=== PATIENT | female | born 1955 | race African-American/Black ===

== ENCOUNTER 2016-06-10 14:12 | Emergency (ER) | payer OTHER ==
[2016-06-10 14:44] VITALS: BP 161/71; PULSE 85; TEMP 98.3; BMI 42.5
--- NOTE | 2016-06-10 15:28 | PDOC ---
History of Present Illness - General Chief Complaint: Pain, Acute Stated Complaint: KNEE PAIN Time Seen by Provider: 06/10/16 14:54 History Source: Patient Exam Limitations: No Limitations - History of Present Illness Initial Comments: 06/10/16 15:26 61 yr female c/o left lower leg and knee pain for 3 days denies trauma. Pt states she was walking on flat surface and her left knee "buckled" and she felt pain to her calf. no numbness or tingling, no foot pain or back pain . Severity: Yes: mild Past History - Past Medical History Allergies/Adverse Reactions: Allergies Allergy/AdvReac Type Severity Reaction Status Date / Time hydrocodone [Hydrocodone] Allergy Verified 06/10/16 14:39 Home Medications: Ambulatory Orders Metoprolol Succinate [Toprol XL -] 25 mg PO DAILY 10/30/13 Aspirin [ASA -] 81 mg PO DAILY 06/10/16 Ezetimibe [Zetia -] 10 mg PO DAILY 06/10/16 Gabapentin 100 mg PO ASDIR 06/10/16 Losartan/Hydrochlorothiazide [Losartan-Hctz 100-12.5 mg Tab] 100 mg PO ASDIR 03/28 Naproxen [Naprosyn -] 500 mg PO BID PRN #14 tablet 06/10/16 Pantoprazole Sodium 40 mg PO ASDIR 06/10/16 Diabetes: Yes HTN: Yes Hypercholesterolemia: Yes Suicide Attempt (Hx): No - Family Disease History Family Disease History: Heart Disease: Father - Immunization History Immunization Up to Date: Yes - Psycho/Social/Smoking Cessation Hx Anxiety: No Suicidal Ideation: No Smoking Status: No Smoking History: Never smoked Have you smoked in the past 12 months: No Number of Cigarettes Smoked Daily: 0 Information on smoking cessation initiated: No Hx Alcohol Use: No Drug/Substance Use Hx: No Substance Use Type: None Hx Substance Use Treatment: No Review of Systems - Review of Systems Able to Perform ROS?: Yes Is the patient limited Lithuanian proficient: No Constitutional: No: Symptoms Reported HEENTM: No: Symptoms Reported Respiratory: No: Symptoms reported Cardiac (ROS): No: Symptoms Reported ABD/GI: No: Symptoms Reported : No: Symptoms Reported Musculoskeletal: Yes: See HPI *Physical Exam - Vital Signs Last Vital Signs Temp Pulse Resp BP Pulse Ox 98.3 F 85 16 161/71 95 06/10/16 14:40 06/10/16 14:40 06/10/16 14:40 06/10/16 14:40 06/10/16 14:40 - Physical Exam General Appearance: Yes: Nourished, Appropriately Dressed HEENT: positive: EOMI, BERTA Neck: positive: Supple Respiratory/Chest: positive: Lungs Clear, Normal Breath Sounds Cardiovascular: positive: Regular Rhythm, Regular Rate Musculoskeletal: positive: Normal Inspection Extremity: positive: Normal Capillary Refill, Normal Inspection, Other ( decreased ROM left knee due to pain behind the knee and to the left lateral calf , no redness no warmth, no swelling ) Integumentary: positive: Normal Color, Dry, Warm Neurologic: positive: Fully Oriented, Alert, Normal Mood/Affect, Normal Response , Motor Strength 5/5 Deep Tendon Reflexes: Ankle (L): 2+, Ankle (R): 2+ ED Treatment Course - RADIOLOGY Radiology Studies Ordered: Category Date Time Status KNEE 3 POS-LEFT [RAD] Stat Radiology 06/10/16 14:55 Ordered DUPLEX VASCUL US-1 LEG [US] Stat Ultrasound 06/10/16 15:24 Ordered Medical Decision Making - Medical Decision Making 06/10/16 15:28 cc: left lower leg pain /knee pain will r/o DVT will r/o bakers cyst 06/10/16 16:18 06/10/16 16:19 positive for bakers cyst will dc home with nsaids warm compresses follow up with ortho 06/10/16 17:50 *DC/Admit/Observation/Transfer Diagnosis at time of Disposition: Diaz's cyst of knee Qualifiers: Laterality: left Qualified Code(s): M71.22 - Synovial cyst of popliteal space [ Diaz], left knee - Discharge Dispostion Disposition: HOME Condition at time of disposition: Good - Prescriptions Prescriptions: Naproxen [Naprosyn -] 500 mg PO BID PRN #14 tablet PRN Reason: Pain - Referrals Referrals: Isra Connor MD [Primary Care Provider] - Samuel Callaway MD [Staff Physician] - - Patient Instructions Additional Instructions: please follow up with the orthopedist Dr. Callaway or for follow up in 3- 5 days or with your primary care doctor take naprosyn for pain as prescribed apply warm heating pad to the area of pain every 2hrs for 15 minutes for the next 2 days this can help with pain and with swelling behind the knee
== END 2016-06-10 18:04 | disposition home or self-care (01) ==
LOC: JERFT 14:12
DX: M71.22 Synovial cyst of popliteal space [Baker], left knee (principal); I10 Essential (primary) hypertension; E11.9 Type 2 diabetes mellitus without complications; Z79.84 Long term (current) use of oral hypoglycemic drugs; E78.00 Pure hypercholesterolemia, unspecified
CPT/HCPCS: 73562-TC-LT; 93971-TC; 99281-25

== ENCOUNTER 2018-08-12 18:42 | Emergency (ER) | payer OTHER ==
[2018-08-12] MEDS ORDERED: ONDANSETRON 4 MG/2 ML VIAL IVPUSH ONE ×2 (18:48→21:02)
[2018-08-12] MEDS ORDERED: SODIUM CHLORIDE 1,000 ML IV STA (18:48)
--- NOTE | 2018-08-12 18:48 | PDOC ---
Rapid Medical Evaluation Time Seen by Provider: 08/12/18 18:43 Medical Evaluation: Allergies Allergy/AdvReac Type Severity Reaction Status Date / Time hydrocodone [Hydrocodone] Allergy Verified 06/10/16 14:39 08/12/18 18:43 The patient is a 63 y/o F who presents with vomiting and abdominal pain since 2 pm. Hx of gastric sleeve surgery in 2017. Denies fevers, dysuria Exam: Epigastric/RUQ discomfort, vomiting in waiting room Orders: labs, urine, EKG, IV, meds Pt to proceed to the ER for further evaluation Discharge Disposition - Diagnosis Abdominal pain - Referrals - Patient Instructions - Post Discharge Activity
[2018-08-12 18:49] VITALS: BMI 27.4
--- NOTE | 2018-08-12 19:25 | PDOC ---
History of Present Illness - General Chief Complaint: Pain Stated Complaint: ABD PAIN Time Seen by Provider: 08/12/18 18:43 - History of Present Illness Initial Comments: 08/12/18 19:24 Ms. Asif is a 63 yo female w/ pmh of GERD, HTN, and Gastric sleeve in 2017 who presents for evaluation of N/V and abdominal pain since noon today. Patient reports she had only coffee and yogurt this morning and has had several episodes of green vomiting since. Was previously well until this occured and localizes her pain to RUQ. Last BM was yesterday and normal. Denies other complaints at this time. The patient denies chest pain, shortness of breath, headache and dizziness. Denies fever, chills, diarrhea and constipation. Denies dysuria, frequency, urgency and hematuria. Past History - Past Medical History Allergies/Adverse Reactions: Allergies Allergy/AdvReac Type Severity Reaction Status Date / Time hydrocodone [Hydrocodone] Allergy Rash Verified 08/12/18 18:44 Home Medications: Ambulatory Orders Metoprolol Succinate [Toprol XL -] 25 mg PO DAILY 10/30/13 Aspirin [ASA -] 81 mg PO DAILY 06/10/16 Ezetimibe [Zetia -] 10 mg PO DAILY 06/10/16 Gabapentin 100 mg PO ASDIR 06/10/16 Losartan/Hydrochlorothiazide [Losartan-Hctz 100-12.5 mg Tab] 100 mg PO ASDIR 03/28 Naproxen [Naprosyn -] 500 mg PO BID PRN #14 tablet 06/10/16 Pantoprazole Sodium 40 mg PO ASDIR 06/10/16 Diabetes: Yes HTN: Yes Hypercholesterolemia: Yes - Family Disease History Family Disease History: Heart Disease: Father - Immunization History Immunization Up to Date: Yes - Suicide/Smoking/Psychosocial Hx Smoking Status: No Smoking History: Never smoked Have you smoked in the past 12 months: No Number of Cigarettes Smoked Daily: 0 Hx Alcohol Use: No Drug/Substance Use Hx: No Substance Use Type: None Hx Substance Use Treatment: No Review of Systems - Review of Systems Comments:: 08/12/18 21:59 GENERAL/CONSTITUTIONAL: No fever or chills. No weakness. HEAD, EYES, EARS, NOSE AND THROAT: No change in vision. No ear pain or discharge. No sore throat. CARDIOVASCULAR: No chest pain or shortness of breath RESPIRATORY: No cough, wheezing, or hemoptysis. GASTROINTESTINAL: +N/V as described w/ abdominal pain as described. No diarrhea or constipation. GENITOURINARY: No dysuria, frequency, or change in urination. MUSCULOSKELETAL: No joint or muscle swelling or pain. No neck or back pain. SKIN: No rash NEUROLOGIC: No headache, vertigo, loss of consciousness, or change in strength/ sensation. ENDOCRINE: No increased thirst. No abnormal weight change HEMATOLOGIC/LYMPHATIC: No anemia, easy bleeding, or history of blood clots. ALLERGIC/IMMUNOLOGIC: No hives or skin allergy. *Physical Exam - Vital Signs Last Vital Signs Temp Pulse Resp BP Pulse Ox 98.9 F 115 H 18 110/81 100 08/12/18 18:45 08/12/18 18:45 08/12/18 18:45 08/12/18 18:45 08/12/18 18:45 - Physical Exam Comments: 08/12/18 22:00 GENERAL: Awake, alert, and fully oriented, in no acute distress HEAD: No signs of trauma, normocephalic, atraumatic EYES: PERRLA, EOMI, sclera anicteric, conjunctiva clear ENT: Auricles normal inspection, hearing grossly normal, nares patent, oropharynx clear without exudates. Moist mucosa NECK: Normal ROM, supple, no lymphadenopathy, JVD, or masses LUNGS: No distress, speaks full sentences, clear to auscultation bilaterally HEART: Regular rate and rhythm, normal S1 and S2, no murmurs, rubs or gallops, peripheral pulses normal and equal bilaterally. ABDOMEN: +Diffuse abdominal TTP; RUQ increased. Otherwise soft, normoactive bowel sounds. No guarding, no rebound. No masses EXTREMITIES: Normal inspection, Normal range of motion, no edema. No clubbing or cyanosis. NEUROLOGICAL: Cranial nerves II through XII grossly intact. Normal speech, normal gait, no focal sensorimotor deficits SKIN: Warm, Dry, normal turgor, no rashes or lesions noted. ED Treatment Course - LABORATORY CBC & Chemistry Diagram: 08/12/18 19:45 08/12/18 19:45 Medical Decision Making - Medical Decision Making 08/13/18 00:28 Ms. Asif is a 63 yo female w/ pmh as described who presents for evaluation of N /V/abdominal pain symptoms concerning for viral illness vs. cholecystitis vs. obstruction. Patient evaluated with labs as below as well as CT abd/pelvis w/ oral contrast. Patient noted to have SBO on CT. Discussed patient with on-call surgery who requests patient be transferred for evaluation at previous surgery site given gastric sleeve placement. Call placed to [facility] for transfer. 08/13/18 00:59 NG placed for continued N/V. 08/13/18 01:26 Unable to get in touch w/ surgeon. Patient accepted for transfer to [facility] by Dr. Robertson (ER Doctor). Patient consented for transfer. Patient NG tube also became displaced. Patient's symptoms improved at this time w/ approx. 300cc bilious material in sump bag. Decision made to withhold placement of tube pending return of symptoms. Patient pending transfer. Laboratory Results - last 24 hr 08/12/18 08/12/18 08/12/18 19:45 19:45 19:45 WBC 7.3 RBC 4.82 Hgb 14.4 Hct 43.4 D MCV 90.2 MCH 30.0 MCHC 33.2 RDW 13.6 Plt Count 144 D MPV 9.0 Absolute Neuts (auto) 6.2 Neutrophils % 85.0 H D Lymphocytes % 11.9 D Monocytes % 2.5 L Eosinophils % 0.0 D Basophils % 0.6 Nucleated RBC % 0 PT with INR 12.30 INR 1.04 Sodium 140 Potassium 4.1 Chloride 101 Carbon Dioxide 31 Anion Gap 7 L BUN 20.2 H Creatinine 1.0 Est GFR (CKD-EPI)AfAm 70.42 Est GFR (CKD-EPI)NonAf 60.76 Random Glucose 184 H Calcium 6.8 L* Phosphorus 3.8 Magnesium 2.1 Total Bilirubin 0.7 AST 25 ALT 24 Alkaline Phosphatase 96 Total Protein 9.2 H Albumin 4.6 Lipase 135 Urine Color Urine Appearance Urine pH Ur Specific [place] Urine Protein Urine Glucose (UA) Urine Ketones Urine Blood Urine Nitrite Urine Bilirubin Urine Urobilinogen Ur Leukocyte Esterase Urine WBC (Auto) Urine RBC (Auto) Urine Casts (Auto) U Pathogenic Cast Auto U Epithel Cells (Auto) Urine Bacteria (Auto) 08/12/18 19:45 WBC RBC Hgb Hct MCV MCH MCHC RDW Plt Count MPV Absolute Neuts (auto) Neutrophils % Lymphocytes % Monocytes % Eosinophils % Basophils % Nucleated RBC % PT with INR INR Sodium Potassium Chloride Carbon Dioxide Anion Gap BUN Creatinine Est GFR (CKD-EPI)AfAm Est GFR (CKD-EPI)NonAf Random Glucose Calcium Phosphorus Magnesium Total Bilirubin AST ALT Alkaline Phosphatase Total Protein Albumin Lipase Urine Color Dk yellow Urine Appearance Cloudy Urine pH 5.0 Ur Specific [place] 1.028 Urine Protein 1+ H Urine Glucose (UA) Negative Urine Ketones Trace H Urine Blood Negative Urine Nitrite Negative Urine Bilirubin Negative Urine Urobilinogen 1.0 Ur Leukocyte Esterase 1+ H Urine WBC (Auto) 3 Urine RBC (Auto) 5 Urine Casts (Auto) 18 U Pathogenic Cast Auto None U Epithel Cells (Auto) 5.0 Urine Bacteria (Auto) 8.5 *DC/Admit/Observation/Transfer Diagnosis at time of Disposition: Small bowel obstruction Abdominal pain Qualifiers: Abdominal location: unspecified location Qualified Code(s): R10.9 - Unspecified abdominal pain - Discharge Dispostion Disposition: TRANSFER ACUTE CARE/OTHER HOSP - Referrals - Patient Instructions - Post Discharge Activity
[2018-08-12] MEDS ORDERED: ACETAMINOPHEN 1000 MG/100 ML VIAL (NON FORMULARY) IVPB ONE (19:49)
[2018-08-12] MEDS ORDERED: ONDANSETRON 4 MG/2 ML VIAL ONE ×2 (20:01→21:11)
[2018-08-12] MEDS ORDERED: ACETAMINOPHEN INJECTION 100 ML IVPB ONE (20:01)
[2018-08-12 20:03] LABS: BASO % 0.6 % (0-2.0); HEMATOCRIT 43.4 % (32.4-45.2); HEMOGLOBIN 14.4 GM/dL (10.7-15.3); LYMPH % 11.9 % (8-40); MCHC 33.2 g/dl (32.0-36.0); MEAN CELL VOLUME 90.2 fl (80-96); MONO % 2.5 % (3.8-10.2); PLATELET COUNT 144 K/MM3 (134-434); RBC 4.82 M/mm3 (3.60-5.2); RDW 13.6 % (11.6-15.6); WHITE BLOOD COUNT 7.3 K/mm3 (4.0-10.0)
[2018-08-12 20:11] LABS: HYALINE CASTS 18 /lpf (0-8); URINE APPEARANCE CLOUDY; URINE BACTERIA 8.5 /hpf (NEGATIVE); URINE BILIRUBIN NEGATIVE (NEGATIVE); URINE COLOR DK YELLOW; URINE GLUCOSE (UA) NEGATIVE (NEGATIVE); URINE KETONE TRACE (NEGATIVE); URINE LEUK ESTERASE 1+ (NEGATIVE); URINE NITRITE NEGATIVE (NEGATIVE); URINE PROTEIN 1+ (NEGATIVE); URINE RBC 5 /hpf (0-4); URINE WBC 3 /hpf (0-5)
[2018-08-12 20:14] LABS: INR 1.04 (0.83-1.09); PROTHROMBIN TIME (PATIENT) 12.3 SEC (9.7-13.0)
--- NOTE | 2018-08-12 20:15 | PDOC ---
Documentation entered by Ileana Boothe SCRIBE, acting as scribe for Conrado Prieto MD. Conrado Prieto MD: This documentation has been prepared by the Tl sewell Nirvannie, SCRIBE, under my direction and personally reviewed by me in its entirety. I confirm that the documentation accurately reflects all work, treatment, procedures, and medical decision making performed by me. Attending Attestation - Resident Resident Name: Robbie Pedroza - ED Attending Attestation I have performed the following: I have examined & evaluated the patient, The case was reviewed & discussed with the resident, I agree w/resident's findings & plan - HPI HPI: 08/12/18 19:51 The patient is a 63year old female, with a significant past medical history of GERD, HTN, gastric sleeve, who presents to the emergency department with, 8 hours of vomiting with diffuse abdominal pain worsened in the RUQ and radiating to the back. She denies recent fevers or chills. She denies recent dysuria, frequency, urgency or hematuria. She denies recent chest pain or shortness of breath. Allergies: Hydrocodone Past surgical history: gastric sleeve 2017, - Physicial Exam PE: 08/12/18 23:19 Agree with exam as documented by resident - Medical Decision Making 08/12/18 23:19 One day of progressive abdominal pain a/w nausea and bilious vomiting. prior hx of gastric sleeve surgery in 2017 Physical exam is concerning for acute abdomen f/u labs f/u imaging CT shows high grade distal SBO Surgery consulted Spoke with Dr. Bowens at 2315 08/12/18, who defers care to Bariatric surgery team at [facility] who has taken care of her in the past and knows her case. Will transfer for definitive care, patient stable NG tube placed
[2018-08-12 20:25] LABS: ALBUMIN 4.6 g/dl (3.4-5.0); BILIRUBIN,TOTAL 0.7 mg/dL (0.2-1); BLOOD UREA NITROGEN 20.2 mg/dL (7-18); POTASSIUM 4.1 mmol/L (3.5-5.1); TOT PROT 9.2 g/dl (6.4-8.2)
[2018-08-12 20:30] LABS: CALCIUM 6.8 mg/dL (8.5-10.1)
[2018-08-12] MEDS ORDERED: CALCIUM GLUCONATE 10% - 1,000 MG/10 ML VIAL IVPB ONE (21:00)
[2018-08-12] MEDS ORDERED: CALCIUM GLUCONATE 10% - 1,000 MG/10 ML VIAL ONE (21:11)
[2018-08-12 22:27] LABS: MAGNESIUM 2.1 mg/dL (1.8-2.4); PHOSPHOROUS 3.8 mg/dL (2.5-4.9)
[2018-08-13] MEDS ORDERED: LIDOCAINE VISCOUS 2% ORAL/TOP 20 ML UNIT-DOSE CUP MM ONE (00:39)
[2018-08-13] MEDS ORDERED: TETRACAINE/BENZOCAINE/BUTAMBEN 20 GM SPR TP ONE (00:39)
[2018-08-13] MEDS ORDERED: LIDOCAINE VISCOUS 2% ORAL/TOP 20 ML UNIT-DOSE CUP ONE (00:44)
[2018-08-13 03:04] VITALS: BP 114/78; PULSE 97
[2018-08-13 03:15] VITALS: TEMP 98.6
--- NOTE | 2018-08-13 11:22 | EKG ---
Test Reason : Blood Pressure : / mmHG Vent. Rate : 094 BPM Atrial Rate : 094 BPM P-R Int : 150 ms QRS Dur : 082 ms QT Int : 362 ms P-R-T Axes : 064 -13 044 degrees QTc Int : 452 ms NORMAL SINUS RHYTHM POSSIBLE LEFT ATRIAL ENLARGEMENT WHEN COMPARED WITH ECG OF 18-AUG-2011 23:39, NO SIGNIFICANT CHANGE WAS FOUND Confirmed by SIVAN NINO MD ([id number]) on 08/13/2018 11:22:18 AM Referred By: Confirmed By:SIVAN NINO MD
== END 2018-08-13 03:17 | disposition short-term general hospital (02) ==
LOC: JER 18:42
PROC: 3E033NZ Introduction of Analgesics, Hypnotics, Sedatives into Peripheral Vein, Percutaneous Approach (ICD-10-PCS; principal; 2018-08-12)
PROC: 3E033GC Introduction of Other Therapeutic Substance into Peripheral Vein, Percutaneous Approach (ICD-10-PCS; 2018-08-12)
PROC: 3E0337Z Introduction of Electrolytic and Water Balance Substance into Peripheral Vein, Percutaneous Approach (ICD-10-PCS; 2018-08-12)
DX: K56.609 Unspecified intestinal obstruction, unspecified as to partial versus complete obstruction (principal); Z98.84 Bariatric surgery status; I10 Essential (primary) hypertension; K21.9 Gastro-esophageal reflux disease without esophagitis; E11.9 Type 2 diabetes mellitus without complications
CPT/HCPCS: 36415; 74177-TC; 80053; 81003; 83690; 83735; 84100; 85025; 85610; 87077; 87086; 93005; 93010; 99284-25; J0131; J7030; Q9967

== ENCOUNTER 2018-08-25 05:01 | Emergency (ER) | payer OTHER ==
[2018-08-25 06:58] VITALS: BMI 28.8
[2018-08-25] MEDS ORDERED: LACTATED RINGERS SOLUTION 1,000 ML/1,000 ML INFUS.BAG IV STA (07:24)
[2018-08-25] MEDS ORDERED: FAMOTIDINE 20 MG/50 ML IVPB 20 MG/50 ML MG IVPB ONE ×2 (07:25→08:05)
[2018-08-25] MEDS ORDERED: ACETAMINOPHEN 1000 MG/100 ML VIAL (NON FORMULARY) IVPB ONE (07:25)
[2018-08-25] MEDS ORDERED: ACETAMINOPHEN INJECTION 100 ML IVPB ONE (08:04)
[2018-08-25 08:34] LABS: BASO % 0.3 % (0-2.0); EOS % 0.1 % (0-4.5); HEMATOCRIT 34.8 % (32.4-45.2); LYMPH % 20.5 % (8-40); MCH 30.7 pg (25.7-33.7); MCHC 34.5 g/dl (32.0-36.0); MEAN PLT VOLUME 8.4 fl (7.5-11.1); MONO % 5.5 % (3.8-10.2); NEUT % 73.6 % (42.8-82.8); PLATELET COUNT 185 K/MM3 (134-434); RBC 3.91 M/mm3 (3.60-5.2); RDW 13.9 % (11.6-15.6); WHITE BLOOD COUNT 5.7 K/mm3 (4.0-10.0)
[2018-08-25 08:41] LABS: INR 1.05 (0.83-1.09); PROTHROMBIN TIME (PATIENT) 12.4 SEC (9.7-13.0)
[2018-08-25 09:05] LABS: ALBUMIN 3.6 g/dl (3.4-5.0); BILIRUBIN,TOTAL 0.5 mg/dL (0.2-1); BLOOD UREA NITROGEN 14.5 mg/dL (7-18); CALCIUM 9.6 mg/dL (8.5-10.1); CREATININE 0.8 mg/dL (0.55-1.3); POTASSIUM 4.5 mmol/L (3.5-5.1); TOT PROT 7.2 g/dl (6.4-8.2)
--- NOTE | 2018-08-25 09:22 | PDOC ---
Documentation entered by Janet Aiken SCRIBE, acting as scribe for Kavin Hodges MD. Kavin Hodges MD: This documentation has been prepared by the Attila sewell Adrianna, SCRIBE, under my direction and personally reviewed by me in its entirety. I confirm that the documentation accurately reflects all work, treatment, procedures, and medical decision making performed by me. History of Present Illness - History of Present Illness Initial Comments: Patient is a 63 Y F with past medical history of GERD, HTN, and gastric sleeve ( 2 years ago at [facility] with Dr. Pao Moore), presents with diffuse abdominal pain for 2 days. The pain is intermittent, sharp, 9\10, exacerbated with bowel movements, with associated burning sensation in the chest, nausea, NBNB vomiting (last episode was earlier this morning), and loose, watery stool. LBM was yesterday, and patient has been unable to pass gas at this time. Patient was seen in the ED 2 weeks ago for the same complaint, where she was transferred to [facility] with an SBO (discharged 2 days ago as the SBO had resolved). Allergies: Hydrocodone Surgical History: Gastric sleeve (2 years ago at [facility] with Dr. Pao Moore -[phone]), , Hysterectomy PCP: Dr. Isra Connor 08/25/18 07:31 <Kavin Hodges - Last Filed: 08/25/18 15:09> <Max Vallejo - Last Filed: 08/25/18 16:19> - General Chief Complaint: Pain Stated Complaint: See Downtime chart Time Seen by Provider: 08/25/18 07:12 Past History - Past Medical History COPD: No Diabetes: Yes HTN: Yes Hypercholesterolemia: Yes - Family Disease History Family Disease History: Heart Disease: Father - Immunization History Immunization Up to Date: Yes - Suicide/Smoking/Psychosocial Hx Smoking Status: No Smoking History: Never smoked Have you smoked in the past 12 months: No Number of Cigarettes Smoked Daily: 0 Hx Alcohol Use: No Drug/Substance Use Hx: No Substance Use Type: None Hx Substance Use Treatment: No <Kavin Hodges - Last Filed: 08/25/18 15:09> <Max Vallejo - Last Filed: 08/25/18 16:19> - Past Medical History Allergies/Adverse Reactions: Allergies Allergy/AdvReac Type Severity Reaction Status Date / Time hydrocodone [Hydrocodone] Allergy Rash Verified 08/12/18 18:44 Home Medications: Ambulatory Orders Metoprolol Succinate [Toprol XL -] 100 mg PO DAILY 10/30/13 Losartan/Hydrochlorothiazide [Losartan-Hctz 100-12.5 mg Tab] 100 mg PO ASDIR 03/28 Review of Systems - Review of Systems Comments:: CONSTITUTIONAL: No fever, no chills, no fatigue EYES: No visual changes ENT: No ear pain, no sore throat CARDIOVASCULAR: +Chest burning. No palpitations RESPIRATORY: No cough, no SOB GI: +Diffuse abdominal pain. + Nausea. +NBNB vomit. +Loose, watery stool. + Unable to pass gas. No constipation. GENITOURINARY: No dysuria, no frequency, no hematuria MUSKULOSKELETAL: No backpain, no joint pain, no myalgias SKIN: No rash NEURO: No headache 08/25/18 07:43 <Kavin Hodges - Last Filed: 08/25/18 15:09> *Physical Exam - Vital Signs Last Vital Signs Temp Pulse Resp BP Pulse Ox 98.2 F 81 18 124/76 100 08/25/18 05:10 08/25/18 05:10 08/25/18 05:10 08/25/18 05:10 08/25/18 05:10 - Physical Exam Comments: CONSTITUTIONAL: Well-appearing; well-nourished; in no apparent distress HEAD: Normocephalic; atraumatic EYES: PERRL; EOM intact. No scleral icterus. ENMT: +Dry mucous membranes. External appears normal; normal oropharynx NECK: Supple; non-tender; no cervical lymphadenopathy CARD: Normal S1, S2; no murmurs, rubs, or gallops RESP: Normal chest excursion with respiration; breath sounds clear and equal bilaterally; no wheezes, rhonchi, or rales ABD: +Diffuse, mild abdominal tenderness to palpation, most severe in the RLQ. + Hyperactive bowel sounds. Soft, non-distended; no palpable organomegaly, no palpable hernias. No guarding, no rebound. EXT: Normal ROM in all four extremities; non-tender to palpation; distal pulses intact SKIN: Warm, dry, no rash NEURO: No focal neurological deficiencies. 08/25/18 07:49 <Kavin Hodges - Last Filed: 08/25/18 15:09> - Vital Signs Last Vital Signs Temp Pulse Resp BP Pulse Ox 98.6 F 88 18 148/81 100 08/25/18 16:15 08/25/18 16:15 08/25/18 05:10 08/25/18 16:15 08/25/18 16:15 <Max Vallejo - Last Filed: 08/25/18 16:19> ED Treatment Course - LABORATORY CBC & Chemistry Diagram: 08/25/18 07:58 08/25/18 07:58 - ADDITIONAL ORDERS Additional order review: Laboratory Results 08/25/18 08/25/18 07:58 07:58 PT with INR 12.40 INR 1.05 Sodium 140 Potassium 4.5 Chloride 107 Carbon Dioxide 30 Anion Gap 3 L BUN 14.5 Creatinine 0.8 Est GFR (CKD-EPI)AfAm 92.22 Est GFR (CKD-EPI)NonAf 79.57 Random Glucose 122 H Calcium 9.6 Total Bilirubin 0.5 AST 15 ALT 21 Alkaline Phosphatase 64 Total Protein 7.2 Albumin 3.6 Lipase 86 08/25/18 07:58 RBC 3.91 MCV 89.0 MCHC 34.5 RDW 13.9 MPV 8.4 Neutrophils % 73.6 Lymphocytes % 20.5 D Monocytes % 5.5 D Eosinophils % 0.1 D Basophils % 0.3 - RADIOLOGY Radiology Studies Ordered: Category Date Time Status ABDOMEN & PELVIS CT WITH CONTR [CT] Stat CT Scan 08/25/18 09:12 Ordered ABDOMEN FLAT & UPRIGHT [RAD] Stat Radiology 08/25/18 07:24 Taken CHEST PA & LAT [RAD] Stat Radiology 08/25/18 07:24 Completed Radiograph Interpretation: EXAM#: TYPE/EXAM: RESULT: [id number] RAD/CHEST PA LAT Chest: Pain. Fracture. 2 views of the chest reveal degenerative changes with wedging, scoliosis, clear lungs, normal mediastinum and sharp angles. The soft tissues are intact. Since the prior study of 08/19/2011 there is no change of an adverse nature. Reported By: Teddy Mann MD 08/25/18 09:17 EXAM#: TYPE/EXAM: RESULT: [id number] RAD/ABDOMEN FLAT UPRIGHT Abdomen: Pain. Impression: Small bowel obstructive process. Reported By: Teddy Mann MD 08/25/18 09:27 EXAM#: TYPE/EXAM: RESULT: [id number] CT/ABDOMEN PELVIS CT WITH CONTR HISTORY PROVIDED: Rule out SBO. IMPRESSION: 1. Findings consistent with high-grade partial SBO with little significant change since 08/12/2018. 2. Suspected portal vein thrombosis with extensive collateral vascularity within the rafat hepatis. Clinical correlation and follow-up recommended. Please see above discussion. Reported By: Kvng Norton MD 08/25/18 13:52 - Medications Given in the ED: ED Medications Discontinued Medications Generic Name Dose Route Start Last Admin Trade Name Freq PRN Reason Stop Dose Admin Acetaminophen 1,000 mg 08/25/18 07:25 08/25/18 08:22 Ofirmev Injection - IVPB 08/25/18 07:26 1,000 mg ONCE ONE Administration Lactated Ringer's 1,000 ml in 1,000 mls @ 2,000 mls/hr 08/25/18 07:24 08:22 Lactated Ringers Solution IV 08/25/18 07:53 2,000 mls/hr ONCE STA Administration Famotidine/Sodium Chloride 20 mg in 50 mls @ 100 mls/hr 08/25/18 07:25 08:22 Pepcid 20 Mg Premixed Ivpb - IVPB 08/25/18 07:54 100 mls/hr ONCE ONE Administration - Additional Consults Time Called: 14:05 (paged) Consult/PCP: Dr. Haynes Reason/Comments: 14:42- paged <Kavin Hodges - Last Filed: 08/25/18 15:09> - LABORATORY CBC & Chemistry Diagram: 08/25/18 07:58 08/25/18 07:58 - ADDITIONAL ORDERS Additional order review: Laboratory Results 08/25/18 08/25/18 08/25/18 09:00 07:58 07:58 PT with INR 12.40 INR 1.05 Sodium Potassium Chloride Carbon Dioxide Anion Gap BUN Creatinine Est GFR (CKD-EPI)AfAm Est GFR (CKD-EPI)NonAf Random Glucose Calcium Total Bilirubin AST ALT Alkaline Phosphatase Total Protein Albumin Lipase Urine Color Dk yellow Urine Appearance Cloudy Urine pH 5.5 Ur Specific [place] 1.032 Urine Protein Trace Urine Glucose (UA) Negative Urine Ketones Negative Urine Blood Negative Urine Nitrite Negative Urine Bilirubin Negative Urine Urobilinogen 0.2 Ur Leukocyte Esterase Trace Urine WBC (Auto) 6 Urine RBC (Auto) 3 Urine Casts (Auto) 18 U Pathogenic Cast Auto None seen U Epithel Cells (Auto) 4.1 Urine Bacteria (Auto) 12.5 Blood Type Cancelled Antibody Screen Cancelled 08/25/18 07:58 PT with INR INR Sodium 140 Potassium 4.5 Chloride 107 Carbon Dioxide 30 Anion Gap 3 L BUN 14.5 Creatinine 0.8 Est GFR (CKD-EPI)AfAm 92.22 Est GFR (CKD-EPI)NonAf 79.57 Random Glucose 122 H Calcium 9.6 Total Bilirubin 0.5 AST 15 ALT 21 Alkaline Phosphatase 64 Total Protein 7.2 Albumin 3.6 Lipase 86 Urine Color Urine Appearance Urine pH Ur Specific [place] Urine Protein Urine Glucose (UA) Urine Ketones Urine Blood Urine Nitrite Urine Bilirubin Urine Urobilinogen Ur Leukocyte Esterase Urine WBC (Auto) Urine RBC (Auto) Urine Casts (Auto) U Pathogenic Cast Auto U Epithel Cells (Auto) Urine Bacteria (Auto) Blood Type Antibody Screen 08/25/18 07:58 RBC 3.91 MCV 89.0 MCHC 34.5 RDW 13.9 MPV 8.4 Neutrophils % 73.6 Lymphocytes % 20.5 D Monocytes % 5.5 D Eosinophils % 0.1 D Basophils % 0.3 - Medications Given in the ED: ED Medications Discontinued Medications Generic Name Dose Route Start Last Admin Trade Name Josq PRN Reason Stop Dose Admin Acetaminophen 1,000 mg 08/25/18 07:25 08/25/18 08:22 Ofirmev Injection - IVPB 08/25/18 07:26 1,000 mg ONCE ONE Administration Lactated Ringer's 1,000 ml in 1,000 mls @ 2,000 mls/hr 08/25/18 07:24 08:22 Lactated Ringers Solution IV 08/25/18 07:53 2,000 mls/hr ONCE STA Administration Famotidine/Sodium Chloride 20 mg in 50 mls @ 100 mls/hr 08/25/18 07:25 08:22 Pepcid 20 Mg Premixed Ivpb - IVPB 08/25/18 07:54 100 mls/hr ONCE ONE Administration Morphine Sulfate 4 mg 08/25/18 14:04 08/25/18 14:17 Morphine Injection - IVPUSH 08/25/18 14:05 4 mg ONCE ONE Administration Ondansetron HCl 4 mg 08/25/18 14:05 08/25/18 14:17 Zofran Injection IVPUSH 08/25/18 14:06 4 mg ONCE ONE Administration <Max Vallejo - Last Filed: 08/25/18 16:19> Medical Decision Making - Medical Decision Making 08/25/18 09:20 Patient is 63-year-old female with history of hypertension, status post gastric sleeve, recently treated for high-grade SBO with NG tube decompression and IV fluids presents with intermittent severe diffuse abdominal pain associated with nausea and nonbloody, nonbilious vomiting. In the ER, patient is awake and alert , afebrile, nontoxic appearing. Physical exam reveals maximum tenderness in the right lower quadrant. Abdominal series x-ray reveals several isolated air-fluid levels including one in the right lower quadrant. I suspect early SBO. Will obtain CT with by mouth and IV contrast. will fluid rescuscitate. Will reassess. 08/25/18 14:17 Patient with recurrent nausea and vomiting. Will treat with morphine and Zofran , will place on maintenance fluids. CT that and pelvis interpreted as high- grade partial SBO. Also noted is a portal vein thrombosis. Will confirm with Doppler ultrasound. If present, we'll administer Lovenox. We'll decompress with NG tube. Will transfer to [place]. <Kavin Hodges - Last Filed: 08/25/18 15:09> *DC/Admit/Observation/Transfer - Attestations Physician Attestion: 08/25/18 09:20 The documentation was prepared by the scribe under my direct supervision. I have reviewed the documentation which correctly represents the findings, medical decision-making and critical action taken by me. <Kavin Hodges - Last Filed: 08/25/18 15:09> <Max Vallejo - Last Filed: 08/25/18 16:19> Diagnosis at time of Disposition: SBO (small bowel obstruction) - Discharge Dispostion Disposition: TRANSFER ACUTE CARE/OTHER HOSP
[2018-08-25 10:35] LABS: EPI CELLS 4.1 /HPF (0-5/HPF); HYALINE CASTS 18 /lpf (0-8); PH,URINE 5.5 (5.0-8.0); URINE APPEARANCE CLOUDY; URINE BACTERIA 12.5 /hpf (NEGATIVE); URINE BILIRUBIN NEGATIVE (NEGATIVE); URINE COLOR DK YELLOW; URINE GLUCOSE (UA) NEGATIVE (NEGATIVE); URINE KETONE NEGATIVE (NEGATIVE); URINE LEUK ESTERASE TRACE (NEGATIVE); URINE NITRITE NEGATIVE (NEGATIVE); URINE PROTEIN TRACE (NEGATIVE); URINE RBC 3 /hpf (0-4); URINE UROBILINOGEN 0.2 mg/dL (0.2-1.0); URINE WBC 6 /hpf (0-5)
[2018-08-25] MEDS ORDERED: morphine CARPU-JECT 4 MG/1 ML DISP.SYRIN IVPUSH ONE (14:04)
[2018-08-25] MEDS ORDERED: ONDANSETRON 4 MG/2 ML VIAL IVPUSH ONE (14:05)
[2018-08-25] MEDS ORDERED: morphine SULFATE 4 MG/ML VIAL ONE (14:08)
[2018-08-25] MEDS ORDERED: ONDANSETRON 4 MG/2 ML VIAL ONE (14:08)
[2018-08-25] MEDS ORDERED: LACTATED RINGERS SOLUTION 1,000 ML/1,000 ML INFUS.BAG IV SCH (14:15)
--- NOTE | 2018-08-25 16:48 | PDOC ---
*Physical Exam - Vital Signs Last Vital Signs Temp Pulse Resp BP Pulse Ox 98.6 F 88 18 148/81 100 08/25/18 16:15 08/25/18 16:15 08/25/18 05:10 08/25/18 16:15 08/25/18 16:15 ED Treatment Course - LABORATORY CBC & Chemistry Diagram: 08/25/18 07:58 08/25/18 07:58 - ADDITIONAL ORDERS Additional order review: Laboratory Results 08/25/18 08/25/18 08/25/18 09:00 07:58 07:58 PT with INR 12.40 INR 1.05 Sodium Potassium Chloride Carbon Dioxide Anion Gap BUN Creatinine Est GFR (CKD-EPI)AfAm Est GFR (CKD-EPI)NonAf Random Glucose Calcium Total Bilirubin AST ALT Alkaline Phosphatase Total Protein Albumin Lipase Urine Color Dk yellow Urine Appearance Cloudy Urine pH 5.5 Ur Specific [place] 1.032 Urine Protein Trace Urine Glucose (UA) Negative Urine Ketones Negative Urine Blood Negative Urine Nitrite Negative Urine Bilirubin Negative Urine Urobilinogen 0.2 Ur Leukocyte Esterase Trace Urine WBC (Auto) 6 Urine RBC (Auto) 3 Urine Casts (Auto) 18 U Pathogenic Cast Auto None seen U Epithel Cells (Auto) 4.1 Urine Bacteria (Auto) 12.5 Blood Type Cancelled Antibody Screen Cancelled 08/25/18 07:58 PT with INR INR Sodium 140 Potassium 4.5 Chloride 107 Carbon Dioxide 30 Anion Gap 3 L BUN 14.5 Creatinine 0.8 Est GFR (CKD-EPI)AfAm 92.22 Est GFR (CKD-EPI)NonAf 79.57 Random Glucose 122 H Calcium 9.6 Total Bilirubin 0.5 AST 15 ALT 21 Alkaline Phosphatase 64 Total Protein 7.2 Albumin 3.6 Lipase 86 Urine Color Urine Appearance Urine pH Ur Specific [place] Urine Protein Urine Glucose (UA) Urine Ketones Urine Blood Urine Nitrite Urine Bilirubin Urine Urobilinogen Ur Leukocyte Esterase Urine WBC (Auto) Urine RBC (Auto) Urine Casts (Auto) U Pathogenic Cast Auto U Epithel Cells (Auto) Urine Bacteria (Auto) Blood Type Antibody Screen 08/25/18 07:58 RBC 3.91 MCV 89.0 MCHC 34.5 RDW 13.9 MPV 8.4 Neutrophils % 73.6 Lymphocytes % 20.5 D Monocytes % 5.5 D Eosinophils % 0.1 D Basophils % 0.3 - RADIOLOGY Radiology Studies Ordered: Category Date Time Status CHEST X-RAY PORTABLE* [RAD] Stat Radiology 08/25/18 16:38 Ordered - Medications Given in the ED: ED Medications Discontinued Medications Generic Name Dose Route Start Last Admin Trade Name Art PRN Reason Stop Dose Admin Acetaminophen 1,000 mg 08/25/18 07:25 08/25/18 08:22 Ofirmev Injection - IVPB 08/25/18 07:26 1,000 mg ONCE ONE Administration Lactated Ringer's 1,000 ml in 1,000 mls @ 2,000 mls/hr 08/25/18 07:24 08:22 Lactated Ringers Solution IV 08/25/18 07:53 2,000 mls/hr ONCE STA Administration Famotidine/Sodium Chloride 20 mg in 50 mls @ 100 mls/hr 08/25/18 07:25 08:22 Pepcid 20 Mg Premixed Ivpb - IVPB 08/25/18 07:54 100 mls/hr ONCE ONE Administration Morphine Sulfate 4 mg 08/25/18 14:04 08/25/18 14:17 Morphine Injection - IVPUSH 08/25/18 14:05 4 mg ONCE ONE Administration Ondansetron HCl 4 mg 08/25/18 14:05 08/25/18 14:17 Zofran Injection IVPUSH 08/25/18 14:06 4 mg ONCE ONE Administration - Additional Consults Time Called: 14:05 (paged) Consult/PCP: Dr. Haynes Reason/Comments: 14:42- paged Medical Decision Making - Medical Decision Making 08/25/18 16:39 S/O from Dr. Fofana Pt has SBO visualized on CT with questionable portal vein thrombosis US shows the thrombosis is chronic and does not require AC. Discussed case with pts general surgeon at [place], Dr. Cedeno agrees to accept pt. Pending call back from transfer center for bed ready. Will call [facility] when bed ready for ACLS transport 08/25/18 19:11 s/o to night team for transfer and further care *DC/Admit/Observation/Transfer Diagnosis at time of Disposition: SBO (small bowel obstruction) - Discharge Dispostion Disposition: TRANSFER ACUTE CARE/OTHER HOSP - Referrals - Patient Instructions - Post Discharge Activity
[2018-08-26] MEDS ORDERED: morphine CARPU-JECT 4 MG/1 ML DISP.SYRIN IVPUSH ONE (00:09)
[2018-08-26] MEDS ORDERED: SODIUM CHLORIDE 1,000 ML IV SCH (00:15)
[2018-08-26] MEDS ORDERED: morphine SULFATE 4 MG/ML VIAL ONE (00:26)
[2018-08-26 01:40] VITALS: TEMP 99
[2018-08-26 02:07] VITALS: BP 129/66; PULSE 74
== END 2018-08-26 03:05 | disposition short-term general hospital (02) ==
LOC: JER 05:01
PROC: 3E033GC Introduction of Other Therapeutic Substance into Peripheral Vein, Percutaneous Approach (ICD-10-PCS; principal; 2018-08-25)
PROC: 3E0337Z Introduction of Electrolytic and Water Balance Substance into Peripheral Vein, Percutaneous Approach (ICD-10-PCS; 2018-08-25)
PROC: 3E033NZ Introduction of Analgesics, Hypnotics, Sedatives into Peripheral Vein, Percutaneous Approach (ICD-10-PCS; 2018-08-25)
PROC: 3E033GC Introduction of Other Therapeutic Substance into Peripheral Vein, Percutaneous Approach (ICD-10-PCS; 2018-08-25)
DX: K56.609 Unspecified intestinal obstruction, unspecified as to partial versus complete obstruction (principal)
CPT/HCPCS: 36415; 71045-TC-FY; 71046-TC-FY; 74019-TC-FY; 74177-TC; 76705-TC; 80053; 81003; 83690; 85025; 85610; 93976; 99285-25; J0131; J7030; Q9967

== ENCOUNTER 2020-02-29 00:27 | Emergency (ER) | payer OTHER ==
[2020-02-29 01:31] VITALS: BP 137/55; PULSE 79; TEMP 98.1; BMI 29.5
[2020-02-29] MEDS ORDERED: FAMOTIDINE 20 MG/50 ML IVPB 20 MG/50 ML MG IVPB ONE ×2 (01:54→02:35)
[2020-02-29] MEDS ORDERED: ONDANSETRON 4 MG/2 ML VIAL IVPUSH ONE (01:54)
[2020-02-29] MEDS ORDERED: SODIUM CHLORIDE 1,000 ML IV STA (02:03)
[2020-02-29] MEDS ORDERED: ONDANSETRON 4 MG/2 ML VIAL ONE (02:35)
[2020-02-29 03:17] LABS: HEMATOCRIT 34.1 % (32.4-45.2); HEMOGLOBIN 11.5 GM/dL (10.7-15.3); LYMPH % 36.9 % (8-40); MCH 30.5 pg (25.7-33.7); MCHC 33.7 g/dl (32.0-36.0); MEAN CELL VOLUME 90.7 fl (80-96); MEAN PLT VOLUME 9.7 fl (7.5-11.1); MONO % 7.6 % (3.8-10.2); NEUT % 53.5 % (42.8-82.8); PLATELET COUNT 156 K/MM3 (134-434); RBC 3.76 M/mm3 (3.60-5.2); RDW 13.6 % (11.6-15.6); WHITE BLOOD COUNT 4.5 K/mm3 (4.0-10.0)
[2020-02-29 03:39] LABS: POTASSIUM 3.8 mmol/L (3.5-5.1)
[2020-02-29 03:42] LABS: ALBUMIN 3.7 g/dl (3.4-5.0); BLOOD UREA NITROGEN 12.9 mg/dL (7-18); CALCIUM 8.8 mg/dL (8.5-10.1); MAGNESIUM 1.7 mg/dL (1.8-2.4)
[2020-02-29 03:45] LABS: CREATININE 0.8 mg/dL (0.55-1.3); PHOSPHOROUS 2.6 mg/dL (2.5-4.9)
[2020-02-29 03:47] LABS: BILIRUBIN,TOTAL 0.5 mg/dL (0.2-1); TOT PROT 7.4 g/dl (6.4-8.2)
[2020-02-29 06:00] LABS: PH,URINE 6.5 (5.0-8.0); URINE APPEARANCE CLEAR; URINE BILIRUBIN NEGATIVE (NEGATIVE); URINE COLOR YELLOW; URINE GLUCOSE (UA) NEGATIVE (NEGATIVE); URINE KETONE NEGATIVE (NEGATIVE); URINE LEUK ESTERASE NEGATIVE (NEGATIVE); URINE NITRITE NEGATIVE (NEGATIVE); URINE PROTEIN NEGATIVE (NEGATIVE); URINE UROBILINOGEN 0.2 mg/dL (0.2-1.0)
[2020-02-29 07:34] LABS: POTASSIUM 4.1 mmol/L (3.5-5.1)
[2020-02-29 07:36] LABS: BLOOD UREA NITROGEN 11.3 mg/dL (7-18); CALCIUM 8.5 mg/dL (8.5-10.1)
[2020-02-29 07:39] LABS: CREATININE 0.7 mg/dL (0.55-1.3)
== END 2020-02-29 08:24 | disposition home or self-care (01) ==
LOC: JER 00:27
PROC: 3E033GC Introduction of Other Therapeutic Substance into Peripheral Vein, Percutaneous Approach (ICD-10-PCS; principal; 2020-02-29)
PROC: 3E033GC Introduction of Other Therapeutic Substance into Peripheral Vein, Percutaneous Approach (ICD-10-PCS; 2020-02-29)
PROC: 3E0337Z Introduction of Electrolytic and Water Balance Substance into Peripheral Vein, Percutaneous Approach (ICD-10-PCS; 2020-02-29)
DX: E86.9 Volume depletion, unspecified (principal); E87.1 Hypo-osmolality and hyponatremia; R10.9 Unspecified abdominal pain
CPT/HCPCS: 36415; 74177-TC; 80048; 80053; 81003; 83605; 83690; 83735; 84100; 84484; 85025; 87086; 99285-25

== ENCOUNTER 2021-03-10 23:37 | Emergency (ER) | payer OTHER ==
[2021-03-10 23:49] VITALS: TEMP 98.2; BMI 31.7
[2021-03-11] MEDS ORDERED: MECLIZINE HCL 25 MG TABLET (FP) ONE (00:21)
[2021-03-11] MEDS ORDERED: ACETAMINOPHEN 1000 MG/100 ML BAG IVPB ONE (01:04)
[2021-03-11] MEDS ORDERED: ACETAMINOPHEN INJECTION 100 ML IVPB ONE (01:22)
[2021-03-11 01:36] LABS: BASO % 0.5 % (0-2.0); EOS % 0.4 % (0-4.5); HEMATOCRIT 32.1 % (32.4-45.2); HEMOGLOBIN 10.9 GM/dL (10.7-15.3); LYMPH % 31.4 % (8-40); MCH 29.9 pg (25.7-33.7); MCHC 33.8 g/dl (32.0-36.0); MEAN CELL VOLUME 88.4 fl (80-96); MEAN PLT VOLUME 8.5 fl (7.5-11.1); MONO % 6.9 % (3.8-10.2); NEUT % 60.8 % (42.8-82.8); PLATELET COUNT 149 10^3/uL (134-434); RBC 3.63 M/mm3 (3.60-5.2); RDW 14.1 % (11.6-15.6); WHITE BLOOD COUNT 4.3 K/mm3 (4.0-10.0)
[2021-03-11 01:55] LABS: ALBUMIN 3.4 g/dl (3.4-5.0); BLOOD UREA NITROGEN 15.1 mg/dL (7-18); CALCIUM 8.8 mg/dL (8.5-10.1); MAGNESIUM 1.4 mg/dL (1.8-2.4)
[2021-03-11 01:59] LABS: CREATININE 0.9 mg/dL (0.55-1.3)
[2021-03-11] MEDS ORDERED: SODIUM CHLORIDE 0.9% 500 ML INFUS.BAG IV ONE (01:59)
[2021-03-11 02:00] LABS: BILIRUBIN,TOTAL 0.5 mg/dL (0.2-1)
[2021-03-11] MEDS ORDERED: MAGNESIUM SULF 50% (8.12 MEQ/2 ML-1 GM VIAL) IVPB ONE (02:00)
[2021-03-11 02:01] LABS: TOT PROT 6.9 g/dl (6.4-8.2)
[2021-03-11] MEDS ORDERED: MAGNESIUM SULFATE IN WATER 2 GM/50 ML IVPB IVPB ONE (02:20)
[2021-03-11 02:31] VITALS: BP 116/56; PULSE 78
[2021-03-11] MEDS ORDERED: LIDOCAINE 5% TOPICAL PATCH TP ONE (02:35)
[2021-03-11] MEDS ORDERED: LIDOCAINE 5% TOPICAL PATCH ONE (02:37)
[2021-03-11 02:49] LABS: EPI CELLS 4 /uL (0-25.1); HYALINE CASTS 0 /uL (0-3.1); PH,URINE 6.5 (5.0-8.0); URINE APPEARANCE CLEAR; URINE BACTERIA 4 /uL (0-1359); URINE BILIRUBIN NEGATIVE (NEGATIVE); URINE COLOR YELLOW; URINE GLUCOSE (UA) NEGATIVE (NEGATIVE); URINE KETONE NEGATIVE (NEGATIVE); URINE LEUK ESTERASE TRACE (NEGATIVE); URINE NITRITE NEGATIVE (NEGATIVE); URINE PROTEIN NEGATIVE (NEGATIVE); URINE RBC 1 /uL (0-23.9); URINE UROBILINOGEN 0.2 mg/dL (0.2-1.0); URINE WBC 6 /uL (0-25.8)
[2021-03-11] MEDS ORDERED: LIDOCAINE PATCH REMOVAL MC SCH (22:00)
== END 2021-03-11 03:38 | disposition home or self-care (01) ==
LOC: JER 23:37
PROC: 3E033GC Introduction of Other Therapeutic Substance into Peripheral Vein, Percutaneous Approach (ICD-10-PCS; principal; 2021-03-10)
DX: R42 Dizziness and giddiness (principal); E86.0 Dehydration; E87.8 Other disorders of electrolyte and fluid balance, not elsewhere classified
CPT/HCPCS: 36415; 70450-TC; 71045-TC-FY; 80053; 81003; 82550; 82553; 83735; 84439; 84443; 84484; 85025; 87086; 93005; 93010; 99285-25; J0131

== ENCOUNTER 2021-08-26 04:51 | Inpatient (IN) | payer OTHER ==
[2021-08-26 05:13] VITALS: BMI 30.9
[2021-08-26] MEDS ORDERED: ACETAMINOPHEN 1000 MG/100 ML BAG IVPB ONE ×2 (05:46→17:37)
[2021-08-26] MEDS ORDERED: ONDANSETRON 4 MG/2 ML VIAL IVPUSH ONE ×2 (05:46→17:41)
[2021-08-26] MEDS ORDERED: MAG HYDROX/AL HYDROX/SIMETH -MYLANTA- ORAL SUSPENSION PO ONE (05:46)
[2021-08-26] MEDS ORDERED: SODIUM CHLORIDE 0.9% 500 ML INFUS.BAG IV ONE (05:46)
[2021-08-26] MEDS ORDERED: FAMOTIDINE 20 MG/50 ML IVPB 20 MG/50 ML MG IVPB ONE ×4 (05:46→17:50)
[2021-08-26] MEDS ORDERED: MAG HYDROX/AL HYDROX/SIMETH 30 ML UNIT-DOSE CUP ONE (06:08)
[2021-08-26] MEDS ORDERED: ACETAMINOPHEN INJECTION 100 ML IVPB ONE ×2 (06:09→17:50)
[2021-08-26] MEDS ORDERED: ONDANSETRON 4 MG/2 ML VIAL ONE ×2 (06:09→17:50)
[2021-08-26] MEDS ORDERED: morphine CARPU-JECT 2 MG/1 ML DISP.SYRIN IVPUSH ONE (06:29)
[2021-08-26 06:36] LABS: BASO % 0.3 % (0-2.0); EOS % 0.1 % (0-4.5); HEMATOCRIT 37.5 % (32.4-45.2); HEMOGLOBIN 12.7 GM/dL (10.7-15.3); LYMPH % 10.9 % (8-40); MCH 29.9 pg (25.7-33.7); MCHC 33.8 g/dl (32.0-36.0); MEAN CELL VOLUME 88.4 fl (80-96); MEAN PLT VOLUME 9.5 fl (7.5-11.1); MONO % 5.3 % (3.8-10.2); NEUT % 83.4 % (42.8-82.8); PLATELET COUNT 154 10^3/uL (134-434); RBC 4.24 M/mm3 (3.60-5.2); RDW 14.2 % (11.6-15.6); WHITE BLOOD COUNT 5.7 K/mm3 (4.0-10.0)
[2021-08-26 06:57] LABS: ALBUMIN 3.8 g/dl (3.4-5.0); BLOOD UREA NITROGEN 19.4 mg/dL (7-18); CALCIUM 9.6 mg/dL (8.5-10.1)
[2021-08-26 07:00] LABS: CREATININE 0.9 mg/dL (0.55-1.3)
[2021-08-26 07:01] LABS: BILIRUBIN,TOTAL 0.7 mg/dL (0.2-1)
[2021-08-26 07:02] LABS: TOT PROT 8.3 g/dl (6.4-8.2)
[2021-08-26 13:13] LABS: PH,URINE 6.5 (5.0-8.0); URINE APPEARANCE CLEAR; URINE BILIRUBIN NEGATIVE (NEGATIVE); URINE COLOR YELLOW; URINE GLUCOSE (UA) NEGATIVE (NEGATIVE); URINE KETONE NEGATIVE (NEGATIVE); URINE LEUK ESTERASE 1+ (NEGATIVE); URINE NITRITE NEGATIVE (NEGATIVE); URINE PROTEIN NEGATIVE (NEGATIVE); URINE UROBILINOGEN 0.2 mg/dL (0.2-1.0)
[2021-08-26 13:26] LABS: EPI CELLS 8.2 /uL (0-25.1); HYALINE CASTS 0.12 /uL (0-3.1); URINE BACTERIA 235.8 /uL (0-1359); URINE RBC 4.6 /uL (0-23.9); URINE WBC 13.5 /uL (0-25.8)
[2021-08-26] MEDS ORDERED: LACTATED RINGERS SOLUTION 1000 ML INFUS.BAG IV ONE (16:11)
[2021-08-26] MEDS ORDERED: LACTATED RINGERS SOLUTION 1,000 ML/1,000 ML INFUS.BAG IV SCH (19:15)
[2021-08-27 05:38] VITALS: BP 106/63; PULSE 82; TEMP 97.3
[2021-08-27] MEDS ORDERED: LACTATED RINGERS SOLUTION 1,000 ML/1,000 ML INFUS.BAG IV SCH (06:45)
== END 2021-08-27 09:50 | disposition left against medical advice (07) | DRG 390 ==
LOC: JER 04:51 → JERBED 08-27 07:52
PROVIDERS: ADMIT Family Medicine Geriatric Medicine; ATTEND Family Medicine Geriatric Medicine
DX: K56.609 Unspecified intestinal obstruction, unspecified as to partial versus complete obstruction (principal); I10 Essential (primary) hypertension; K21.9 Gastro-esophageal reflux disease without esophagitis
CPT/HCPCS: 36415; 74177-TC; 80053; 81003; 83690; 84132; 85025; 87086; 99285-25; C9803-CS; Q9967; U0003; U0005

== ENCOUNTER 2022-03-23 12:49 | Emergency (ER) | payer OTHER ==
[2022-03-23 12:53] VITALS: RESP 18; TEMP 98.7; BMI 30.9
[2022-03-23] MEDS ORDERED: SODIUM CHLORIDE 1,000 ML IV STA (14:03)
[2022-03-23 15:32] LABS: INR 1.06 (0.83-1.09); PROTHROMBIN TIME (PATIENT) 12.3 SEC (9.7-13.0)
[2022-03-23 15:35] LABS: ACTIVATED PTT 30.2 SECONDS (25.2-36.5)
[2022-03-23 15:37] LABS: BASO % 0.9 % (0-2.0); EOS % 0.8 % (0-4.5); HEMATOCRIT 35.1 % (32.4-45.2); HEMOGLOBIN 11.8 GM/dL (10.7-15.3); LYMPH % 33.7 % (8-40); MCH 30.2 pg (25.7-33.7); MCHC 33.7 g/dl (32.0-36.0); MEAN CELL VOLUME 89.9 fl (80-96); MEAN PLT VOLUME 9.1 fl (7.5-11.1); MONO % 7.6 % (3.8-10.2); PLATELET COUNT 140 10^3/uL (134-434); RBC 3.91 M/mm3 (3.60-5.2); RDW 13.7 % (11.6-15.6); WHITE BLOOD COUNT 3.8 K/mm3 (4.0-10.0)
[2022-03-23 15:45] LABS: URINE APPEARANCE CLEAR; URINE BILIRUBIN NEGATIVE (NEGATIVE); URINE COLOR YELLOW; URINE GLUCOSE (UA) NEGATIVE (NEGATIVE); URINE KETONE NEGATIVE (NEGATIVE); URINE LEUK ESTERASE NEGATIVE (NEGATIVE); URINE NITRITE NEGATIVE (NEGATIVE); URINE PROTEIN NEGATIVE (NEGATIVE); URINE UROBILINOGEN 0.2 mg/dL (0.2-1.0)
[2022-03-23 16:26] LABS: CALCIUM 9.3 mg/dL (8.5-10.1)
[2022-03-23 16:27] LABS: ALBUMIN 3.9 g/dl (3.4-5.0); BLOOD UREA NITROGEN 14.1 mg/dL (7-18)
[2022-03-23 16:30] LABS: CREATININE 0.8 mg/dL (0.55-1.3)
[2022-03-23 16:32] LABS: BILIRUBIN,TOTAL 0.7 mg/dL (0.2-1); TOT PROT 7.7 g/dl (6.4-8.2)
[2022-03-23] MEDS ORDERED: ACETAMINOPHEN 500 MG TABLET (FP) PO ONE (16:57)
[2022-03-23] MEDS ORDERED: METOCLOPRAMIDE HCL INJECTION 10 MG/2 ML VIAL IVPUSH ONE (16:57)
[2022-03-23] MEDS ORDERED: METOCLOPRAMIDE HCL INJECTION 10 MG/2 ML VIAL ONE (17:06)
[2022-03-23] MEDS ORDERED: ACETAMINOPHEN 500 MG TABLET (FP) ONE (17:06)
[2022-03-23] MEDS ORDERED: KETOROLAC TROMETHAMINE 15 MG/ML VIAL IVPUSH ONE (17:36)
[2022-03-23] MEDS ORDERED: KETOROLAC TROMETHAMINE 15 MG/ML VIAL ONE (17:40)
[2022-03-23 17:47] VITALS: BP 135/80; PULSE 73
== END 2022-03-23 17:48 | disposition home or self-care (01) ==
LOC: JER 12:49 → JERFT 12:49
PROC: 3E033GC Introduction of Other Therapeutic Substance into Peripheral Vein, Percutaneous Approach (ICD-10-PCS; principal; 2022-03-23)
PROC: 3E0333Z Introduction of Anti-inflammatory into Peripheral Vein, Percutaneous Approach (ICD-10-PCS; 2022-03-23)
PROC: 3E033GC Introduction of Other Therapeutic Substance into Peripheral Vein, Percutaneous Approach (ICD-10-PCS; 2022-03-23)
PROC: 3E0337Z Introduction of Electrolytic and Water Balance Substance into Peripheral Vein, Percutaneous Approach (ICD-10-PCS; 2022-03-23)
DX: R05.1 Acute cough (principal); M54.2 Cervicalgia
CPT/HCPCS: 0241U-QW; 36415; 70450-TC; 71046-TC-FY; 80053; 81003; 83735; 84484; 85025; 85610; 85730; 93005; 93010; 99285-25